=== PATIENT | female | born 1990 | race Caucasian/White ===

== ENCOUNTER → 2021-01-08 08:03 | Outpatient (CLI) | payer OTHER, MEDICAID, SELFPAY ==
[2021-01-08 11:42] LABS: COVID19 -Nasal RAPID POSITIVE (Negative)
== END ==
PROVIDERS: Referring Provider Physician Assistant; Visit Provider Physician Assistant
DX: U07.1 COVID-19 (principal)
CPT/HCPCS: 87635

== ENCOUNTER 2021-01-31 23:13 | Emergency (ER) | payer OTHER, MEDICAID, SELFPAY ==
--- NOTE | 2021-01-31 23:21 | ED.GENADULT ---
HPI - General Adult <Pat Lamas MD - Last Filed: 02/14/21 07:24> General Chief complaint: Psychiatric Symptoms Stated complaint: Anxiety hard time breathing Time Seen by Provider: 01/31/21 23:21 History of Present Illness HPI narrative: 30-year-old woman with no specific known prior history of psychiatric disease including bipolar disorder, schizophrenia or acute psychosis is brought in by her fiance and friends with concerns about increasingly erratic behavior. They note that she had COVID 1 month ago and has had quite a bit of increased psychosocial stressors recently. Her fiance notes that he was sick with COVID at the same time and recovered in about 2 days while the patient essentially was in bed for about 2 weeks with extreme fatigue and is just now getting to the point where she is up and moving again. She still has a slight cough and yesterday was seen at urgent care and prescribed an inhaler and Tessalon Perles. Her fiance notes that over the last number her days of days she has become more and more erratic with less and less organized thinking. On presentation she is clearly responding to internal stimuli, hearing voices as well as seeing people just behind curtains her speech is pressured she continues to note that a ?senior oracle database developer is needed understand ?she is extraordinarily tangential and obviously frightened. According to her boyfriend she has not had fevers in the last 2 weeks, no vomiting, diarrhea or complaints of abdominal pain. Boyfriend, his mother and patient's brother are all significantly distressed by her behavior and reports that this is a clear and obvious change within the last days to weeks. Related Data Previous Rx's Medication Instructions Recorded albuterol sulfate 90 mcg/actuation 2 puff INHALATION Q6H PRN #8.5 g 01/29/21 aerosol inhaler benzonatate 100 mg capsule 100 mg PO BID-TID PRN #14 cap 01/29/21 olanzapine 10 mg tablet (Zyprexa) 10 mg PO BEDTIME #14 tab 02/01/21 Allergies Allergy/AdvReac Type Severity Reaction Status Date / Time No Known Drug Allergies Allergy Unverified 01/29/21 13:05 Review of Systems <Pat Lamas MD - Last Filed: 02/14/21 07:24> Review of Systems ROS Unobtainable: Unobtainable due to mental condition Patient History <Pat Lamas MD - Last Filed: 02/14/21 07:24> Social History Smoking Status: Never smoker Smoking Status: Never smoker Exam <Pat Lamas MD - Last Filed: 02/14/21 07:24> Narrative Exam Narrative: General: Healthy appearing, in significant psychiatric distress, frightened, responding to visual and auditory hallucinations HEENT: Moist mucous membranes, normal sclera with reactive pupils, Respiratory: Lungs are clear to auscultation, no wheezing no rales no rhonchi. Mild dry cough, Full and symmetrical air movement Cardiac: Tachycardic but otherwise Regular rate and rhythm no murmurs no bruits Abdomen: Soft, nontender, good bowel tones, no flank pain Skin: Warm and dry, no rashes Neurologic: Grossly neurologically intact with no obvious asymmetries or abnormalities Extremities: No trauma, well perfused Psych: Tearful, responding to internal stimuli, tangential, pressured with nonsensical thinking Initial Vital Signs Initial Vital Signs: Vital Signs Temperature 98.4 F 02/01/21 00:28 Pulse Rate 108 H 02/01/21 00:28 Respiratory Rate 18 02/01/21 00:28 Blood Pressure 158/72 H 02/01/21 00:28 Pulse Oximetry 97 02/01/21 00:28 <Ammy Gibson DO - Last Filed: 02/01/21 19:30> Initial Vital Signs Initial Vital Signs: Vital Signs Temperature 98.4 F 02/01/21 00:28 Pulse Rate 108 H 02/01/21 00:28 Respiratory Rate 18 02/01/21 00:28 Blood Pressure 158/72 H 02/01/21 00:28 Pulse Oximetry 97 02/01/21 00:28 Course <Pat Lamas MD - Last Filed: 02/14/21 07:24> Course Course Narrative: 515 am Discussion with her Father (currently in [place]). confirms no prior diagnosis of psychiatric issues. Does note there have been significant psychosocial stressors recently. Father's name and contact information is Laureano Dennis [phone]. He is hoping be contacted after further evaluation and social work discussion. Orders Ordered: ED Orders 02/01/21 10:34 Consult to AGRICULTURE PROFESSOR - Pyrotechnist Stat 02/01/21 13:13 Urinalysis and Microscopic Stat Urine Drug Screen, Rapid Stat Vital Signs Vital signs: Vital Signs - 8 hr 02/01/21 13:13 Pulse Rate 86 Respiratory Rate 18 Blood Pressure 127/77 Pulse Oximetry 97 <Ammy Baez Paige, DO - Last Filed: 02/01/21 19:30> Course Additional Information: Spoke with patients Father (in [place]). Also confirms no prior psychiatric issues. But there have been multiple psychosocial stressors. Patient's father is going to talk with her over the phone I asked him to call me back if he had any concerns after he spoke with her at this time she seems much improved in her mentation although probably not completely back at baseline. Patient's father feels comfortable with this and is aware that plan is likely to discharge home after evaluation was social Work and goal to set patient up with medication as well as prompt follow-up with psych. Orders Ordered: ED Orders 02/01/21 10:34 Consult to AGRICULTURE PROFESSOR - Pyrotechnist Stat 02/01/21 13:13 Urinalysis and Microscopic Stat Urine Drug Screen, Rapid Stat Reevaluation(s) Reevaluation #1: Patient signed out to myself by Dr. Lamas. Patient appears to be having a manic episode. She does not have any known prior psychiatric history. She did test positive for COVID several weeks ago she had had resolution of her symptoms is outside the quarantine window. Head CT, labs and chest x-ray do not show any acute changes that would cause her symptoms today. Patient did receive medications here in the department and was sleeping when I [address] and has since awoken. At this time she is calm, her thoughts and speech are organized. Patient does states she has had significant social stressors including a in her family. She is currently asymptomatic. She was quite anxious about the fact that her COVID test was still positive. Patient is agreeable to chat with the perinatal social worker. She does not wish to be placed. She is open to medication and her boyfriend and I both encouraged her to stay to check with perinatal social worker to help her get more appropriate follow-up. Time: 09:17 Reevaluation #2: Patient spoke with our perinatal social worker today, Pamela. Patient has continued to be appropriate here in the department. She and her boyfriend at bedside both feel comfortable returning home. Patient has been agreeable to evaluate with perinatal social worker. She is going to be re-contacted with exact call back time for phone eval this evening. Discussed patient current situation will not completely resolved without some intervention and both medication as well as counseling and possible ongoing psychiatric care are likely necessary. Patient is comfortable with this plan she was given referral for [facility] for additional resources, local psychiatry as well as primary care to establish. Patient also has been given resources by social Work for some additional counseling services. Patient was encouraged to return any time for recheck or if she feels her symptoms are not being well managed or controlled. Vital Signs Vital signs: Vital Signs - 8 hr 02/01/21 13:13 Pulse Rate 86 Respiratory Rate 18 Blood Pressure 127/77 Pulse Oximetry 97 Medical Decision Making <Pat Lamas MD - Last Filed: 02/14/21 07:24> Lab Data Result diagrams: 02/01/21 00:15 02/01/21 00:15 Labs: Lab Results 02/01/21 02/01/21 02/01/21 Range/Units 00:15 00:15 00:15 WBC 8.9 (4.5-11.0) X10^3/uL RBC 4.20 (4.0-5.2) X10^6/uL Hgb 11.6 L (12.0-16.0) g/dL Hct 35.5 L (36-46) % MCV 84.4 (80-100) fL MCH 27.7 (26-34) PG MCHC 32.8 (30-36) % RDW 15.6 H (11.6-14.8) % Plt Count 231 (150-400) X10^3/uL Neut % (Auto) 67.4 (50-75) % Lymph % (Auto) 20.6 L (25-40) % [place] % (Auto) 11.4 (3-14) % Eos % (Auto) 0.0 L (2-4) % Baso % (Auto) 0.6 (0-2) % Neut # (Auto) 6000 (1436-1066) /uL Lymph # (Auto) 1800 (5511-7731) /uL [place] # (Auto) 1000 H (0-900) /uL Eos # (Auto) 0 (0-450) /uL Baso # (Auto) 0 (0-100) /uL Sodium 139 (137-145) mmol/L Potassium 3.5 (3.4-5.1) mmol/L Chloride 110 H (98-107) mmol/L Carbon Dioxide 20 L (22-32) mmol/L BUN 9 (7-17) mg/dL Creatinine 0.58 (0.52-1.04) mg/dL Estimated GFR > 60.0 (>60) mL/min BUN/Creatinine Ratio 15.5 (6-22) Glucose 112 H (70-100) mg/dL Calcium 9.3 (8.4-10.2) mg/dL Total Bilirubin 0.9 (0.2-1.3) mg/dL AST 48 H (14-36) IU/L ALT 56 H (<35) IU/L Alkaline Phosphatase 76 (38-126) U/L Total Protein 7.7 (6.3-8.2) g/dL Albumin 4.3 (3.5-5.0) g/dL Globulin 3.4 (1.7-4.1) g/dL Albumin/Globulin Ratio 1.3 (1.0-2.8) TSH 1.89 (0.47-4.68) uIU/mL Serum , Qual (Negative) Urine Color Urine Appearance Urine pH (4.5-8.0) Ur Specific [place] (1.000-1.035) Urine Protein (Negative) Urine Glucose (UA) (Negative) g/dL Urine Ketones (NEGATIVE) Urine Occult Blood (Negative) Urine Nitrate (Negative) Urine Bilirubin (NEGATIVE) Urine Urobilinogen (0.2) E.U./dL Ur Leukocyte Esterase (NEGATIVE) Urine RBC (0-5/HPF) Urine WBC (0-5/HPF) Ur Squamous Epith Cells (0-5/HPF) Urine Bacteria (None) Ur Culture Indicated? U Opiates 300ng/mL cut (Negative) Ur Oxycodone Screen (Negative) Urine Methadone Screen (Negative) Ur Barbiturates Screen (Negative) U Tricyclic Antidepress (Negative) Ur Phencyclidine Scrn (Negative) Ur Amphetamines Screen (Negative) U Methamphetamines Scrn (Negative) Ur MDMA Scrn (Ecstasy) (Negative) U Benzodiazepines Scrn (Negative) Urine Cocaine Screen (Negative) U Marijuana (THC) Screen (Negative) Ethyl Alcohol < 10 ( - 10) mg/dL SARS-CoV-2 (PCR) (Negative) 02/01/21 02/01/21 02/01/21 Range/Units 00:15 02:20 13:13 WBC (4.5-11.0) X10^3/uL RBC (4.0-5.2) X10^6/uL Hgb (12.0-16.0) g/dL Hct (36-46) % MCV (80-100) fL MCH (26-34) PG MCHC (30-36) % RDW (11.6-14.8) % Plt Count (150-400) X10^3/uL Neut % (Auto) (50-75) % Lymph % (Auto) (25-40) % [place] % (Auto) (3-14) % Eos % (Auto) (2-4) % Baso % (Auto) (0-2) % Neut # (Auto) (9885-2467) /uL Lymph # (Auto) (3918-0120) /uL [place] # (Auto) (0-900) /uL Eos # (Auto) (0-450) /uL Baso # (Auto) (0-100) /uL Sodium (137-145) mmol/L Potassium (3.4-5.1) mmol/L Chloride (98-107) mmol/L Carbon Dioxide (22-32) mmol/L BUN (7-17) mg/dL Creatinine (0.52-1.04) mg/dL Estimated GFR (>60) mL/min BUN/Creatinine Ratio (6-22) Glucose (70-100) mg/dL Calcium (8.4-10.2) mg/dL Total Bilirubin (0.2-1.3) mg/dL AST (14-36) IU/L ALT (<35) IU/L Alkaline Phosphatase (38-126) U/L Total Protein (6.3-8.2) g/dL Albumin (3.5-5.0) g/dL Globulin (1.7-4.1) g/dL Albumin/Globulin Ratio (1.0-2.8) TSH (0.47-4.68) uIU/mL Serum , Qual Negative (Negative) Urine Color Yellow Urine Appearance Clear Urine pH 6.5 (4.5-8.0) Ur Specific [place] 1.015 (1.000-1.035) Urine Protein Negative (Negative) Urine Glucose (UA) Negative (Negative) g/dL Urine Ketones 2+ H (NEGATIVE) Urine Occult Blood Negative (Negative) Urine Nitrate Negative (Negative) Urine Bilirubin Negative (NEGATIVE) Urine Urobilinogen 0.2 (0.2) E.U./dL Ur Leukocyte Esterase Negative (NEGATIVE) Urine RBC None seen (0-5/HPF) Urine WBC None seen (0-5/HPF) Ur Squamous Epith Cells 0-1 /hpf (0-5/HPF) Urine Bacteria Occasional (0-1) (None) Ur Culture Indicated? Cult not indicated U Opiates 300ng/mL cut (Negative) Ur Oxycodone Screen (Negative) Urine Methadone Screen (Negative) Ur Barbiturates Screen (Negative) U Tricyclic Antidepress (Negative) Ur Phencyclidine Scrn (Negative) Ur Amphetamines Screen (Negative) U Methamphetamines Scrn (Negative) Ur MDMA Scrn (Ecstasy) (Negative) U Benzodiazepines Scrn (Negative) Urine Cocaine Screen (Negative) U Marijuana (THC) Screen (Negative) Ethyl Alcohol ( - 10) mg/dL SARS-CoV-2 (PCR) Positive H (Negative) 02/01/21 Range/Units 13:13 WBC (4.5-11.0) X10^3/uL RBC (4.0-5.2) X10^6/uL Hgb (12.0-16.0) g/dL Hct (36-46) % MCV (80-100) fL MCH (26-34) PG MCHC (30-36) % RDW (11.6-14.8) % Plt Count (150-400) X10^3/uL Neut % (Auto) (50-75) % Lymph % (Auto) (25-40) % [place] % (Auto) (3-14) % Eos % (Auto) (2-4) % Baso % (Auto) (0-2) % Neut # (Auto) (8017-4257) /uL Lymph # (Auto) (5073-7425) /uL [place] # (Auto) (0-900) /uL Eos # (Auto) (0-450) /uL Baso # (Auto) (0-100) /uL Sodium (137-145) mmol/L Potassium (3.4-5.1) mmol/L Chloride (98-107) mmol/L Carbon Dioxide (22-32) mmol/L BUN (7-17) mg/dL Creatinine (0.52-1.04) mg/dL Estimated GFR (>60) mL/min BUN/Creatinine Ratio (6-22) Glucose (70-100) mg/dL Calcium (8.4-10.2) mg/dL Total Bilirubin (0.2-1.3) mg/dL AST (14-36) IU/L ALT (<35) IU/L Alkaline Phosphatase (38-126) U/L Total Protein (6.3-8.2) g/dL Albumin (3.5-5.0) g/dL Globulin (1.7-4.1) g/dL Albumin/Globulin Ratio (1.0-2.8) TSH (0.47-4.68) uIU/mL Serum , Qual (Negative) Urine Color Urine Appearance Urine pH (4.5-8.0) Ur Specific [place] (1.000-1.035) Urine Protein (Negative) Urine Glucose (UA) (Negative) g/dL Urine Ketones (NEGATIVE) Urine Occult Blood (Negative) Urine Nitrate (Negative) Urine Bilirubin (NEGATIVE) Urine Urobilinogen (0.2) E.U./dL Ur Leukocyte Esterase (NEGATIVE) Urine RBC (0-5/HPF) Urine WBC (0-5/HPF) Ur Squamous Epith Cells (0-5/HPF) Urine Bacteria (None) Ur Culture Indicated? U Opiates 300ng/mL cut Negative (Negative) Ur Oxycodone Screen Negative (Negative) Urine Methadone Screen Negative (Negative) Ur Barbiturates Screen Negative (Negative) U Tricyclic Antidepress Negative (Negative) Ur Phencyclidine Scrn Negative (Negative) Ur Amphetamines Screen Negative (Negative) U Methamphetamines Scrn Negative (Negative) Ur MDMA Scrn (Ecstasy) Negative (Negative) U Benzodiazepines Scrn Positive H (Negative) Urine Cocaine Screen Negative (Negative) U Marijuana (THC) Screen Positive H (Negative) Ethyl Alcohol ( - 10) mg/dL SARS-CoV-2 (PCR) (Negative) Imaging Data CT scan - head: Radiologist's Impression: No acute intracranial abnormality Weston Day MD Chest x-ray: Radiologist's Impression: No acute cardiopulmonary abnormality Weston Day MD [facility] Narrative Medical decision making narrative: 30-year-old woman who presents with acutely psychotic behavior appearing to be in a manic episode with no prior history of such. It is of note that she was diagnosed with COVID 1 month ago and had a reported 2 week episode of severe fatigue and inability to even get out of bed. Aside from a very mild dry cough she has no continued pulmonary or cardiac symptoms of COVID and she is afebrile. Labs are reassuring suggesting no acute metabolic abnormality or infection. Because this is 1st presentation of such behavior CT scan of the head is obtained 430am covid test remains postive. She is out of the quarantine window based on initial symptoms and resolution <Ammy Gibson, DO - Last Filed: 02/01/21 19:30> Lab Data Labs: Lab Results 02/01/21 02/01/21 02/01/21 Range/Units 00:15 00:15 00:15 WBC 8.9 (4.5-11.0) X10^3/uL RBC 4.20 (4.0-5.2) X10^6/uL Hgb 11.6 L (12.0-16.0) g/dL Hct 35.5 L (36-46) % MCV 84.4 (80-100) fL MCH 27.7 (26-34) PG MCHC 32.8 (30-36) % RDW 15.6 H (11.6-14.8) % Plt Count 231 (150-400) X10^3/uL Neut % (Auto) 67.4 (50-75) % Lymph % (Auto) 20.6 L (25-40) % [place] % (Auto) 11.4 (3-14) % Eos % (Auto) 0.0 L (2-4) % Baso % (Auto) 0.6 (0-2) % Neut # (Auto) 6000 (3745-4940) /uL Lymph # (Auto) 1800 (4245-3283) /uL [place] # (Auto) 1000 H (0-900) /uL Eos # (Auto) 0 (0-450) /uL Baso # (Auto) 0 (0-100) /uL Sodium 139 (137-145) mmol/L Potassium 3.5 (3.4-5.1) mmol/L Chloride 110 H (98-107) mmol/L Carbon Dioxide 20 L (22-32) mmol/L BUN 9 (7-17) mg/dL Creatinine 0.58 (0.52-1.04) mg/dL Estimated GFR > 60.0 (>60) mL/min BUN/Creatinine Ratio 15.5 (6-22) Glucose 112 H (70-100) mg/dL Calcium 9.3 (8.4-10.2) mg/dL Total Bilirubin 0.9 (0.2-1.3) mg/dL AST 48 H (14-36) IU/L ALT 56 H (<35) IU/L Alkaline Phosphatase 76 (38-126) U/L Total Protein 7.7 (6.3-8.2) g/dL Albumin 4.3 (3.5-5.0) g/dL Globulin 3.4 (1.7-4.1) g/dL Albumin/Globulin Ratio 1.3 (1.0-2.8) TSH 1.89 (0.47-4.68) uIU/mL Serum , Qual (Negative) Urine Color Urine Appearance Urine pH (4.5-8.0) Ur Specific [place] (1.000-1.035) Urine Protein (Negative) Urine Glucose (UA) (Negative) g/dL Urine Ketones (NEGATIVE) Urine Occult Blood (Negative) Urine Nitrate (Negative) Urine Bilirubin (NEGATIVE) Urine Urobilinogen (0.2) E.U./dL Ur Leukocyte Esterase (NEGATIVE) Urine RBC (0-5/HPF) Urine WBC (0-5/HPF) Ur Squamous Epith Cells (0-5/HPF) Urine Bacteria (None) Ur Culture Indicated? U Opiates 300ng/mL cut (Negative) Ur Oxycodone Screen (Negative) Urine Methadone Screen (Negative) Ur Barbiturates Screen (Negative) U Tricyclic Antidepress (Negative) Ur Phencyclidine Scrn (Negative) Ur Amphetamines Screen (Negative) U Methamphetamines Scrn (Negative) Ur MDMA Scrn (Ecstasy) (Negative) U Benzodiazepines Scrn (Negative) Urine Cocaine Screen (Negative) U Marijuana (THC) Screen (Negative) Ethyl Alcohol < 10 ( - 10) mg/dL SARS-CoV-2 (PCR) (Negative) 08/01/21 08/01/21 08/01/21 Range/Units 00:15 02:20 13:13 WBC (4.5-11.0) X10^3/uL RBC (4.0-5.2) X10^6/uL Hgb (12.0-16.0) g/dL Hct (36-46) % MCV (80-100) fL MCH (26-34) PG MCHC (30-36) % RDW (11.6-14.8) % Plt Count (150-400) X10^3/uL Neut % (Auto) (50-75) % Lymph % (Auto) (25-40) % [place] % (Auto) (3-14) % Eos % (Auto) (2-4) % Baso % (Auto) (0-2) % Neut # (Auto) (7344-6999) /uL Lymph # (Auto) (0720-1901) /uL [place] # (Auto) (0-900) /uL Eos # (Auto) (0-450) /uL Baso # (Auto) (0-100) /uL Sodium (137-145) mmol/L Potassium (3.4-5.1) mmol/L Chloride (98-107) mmol/L Carbon Dioxide (22-32) mmol/L BUN (7-17) mg/dL Creatinine (0.52-1.04) mg/dL Estimated GFR (>60) mL/min BUN/Creatinine Ratio (6-22) Glucose (70-100) mg/dL Calcium (8.4-10.2) mg/dL Total Bilirubin (0.2-1.3) mg/dL AST (14-36) IU/L ALT (<35) IU/L Alkaline Phosphatase (38-126) U/L Total Protein (6.3-8.2) g/dL Albumin (3.5-5.0) g/dL Globulin (1.7-4.1) g/dL Albumin/Globulin Ratio (1.0-2.8) TSH (0.47-4.68) uIU/mL Serum , Qual Negative (Negative) Urine Color Yellow Urine Appearance Clear Urine pH 6.5 (4.5-8.0) Ur Specific [place] 1.015 (1.000-1.035) Urine Protein Negative (Negative) Urine Glucose (UA) Negative (Negative) g/dL Urine Ketones 2+ H (NEGATIVE) Urine Occult Blood Negative (Negative) Urine Nitrate Negative (Negative) Urine Bilirubin Negative (NEGATIVE) Urine Urobilinogen 0.2 (0.2) E.U./dL Ur Leukocyte Esterase Negative (NEGATIVE) Urine RBC None seen (0-5/HPF) Urine WBC None seen (0-5/HPF) Ur Squamous Epith Cells 0-1 /hpf (0-5/HPF) Urine Bacteria Occasional (0-1) (None) Ur Culture Indicated? Cult not indicated U Opiates 300ng/mL cut (Negative) Ur Oxycodone Screen (Negative) Urine Methadone Screen (Negative) Ur Barbiturates Screen (Negative) U Tricyclic Antidepress (Negative) Ur Phencyclidine Scrn (Negative) Ur Amphetamines Screen (Negative) U Methamphetamines Scrn (Negative) Ur MDMA Scrn (Ecstasy) (Negative) U Benzodiazepines Scrn (Negative) Urine Cocaine Screen (Negative) U Marijuana (THC) Screen (Negative) Ethyl Alcohol ( - 10) mg/dL SARS-CoV-2 (PCR) Positive H (Negative) 02/01/21 Range/Units 13:13 WBC (4.5-11.0) X10^3/uL RBC (4.0-5.2) X10^6/uL Hgb (12.0-16.0) g/dL Hct (36-46) % MCV (80-100) fL MCH (26-34) PG MCHC (30-36) % RDW (11.6-14.8) % Plt Count (150-400) X10^3/uL Neut % (Auto) (50-75) % Lymph % (Auto) (25-40) % [place] % (Auto) (3-14) % Eos % (Auto) (2-4) % Baso % (Auto) (0-2) % Neut # (Auto) (2684-4139) /uL Lymph # (Auto) (3854-2460) /uL [place] # (Auto) (0-900) /uL Eos # (Auto) (0-450) /uL Baso # (Auto) (0-100) /uL Sodium (137-145) mmol/L Potassium (3.4-5.1) mmol/L Chloride (98-107) mmol/L Carbon Dioxide (22-32) mmol/L BUN (7-17) mg/dL Creatinine (0.52-1.04) mg/dL Estimated GFR (>60) mL/min BUN/Creatinine Ratio (6-22) Glucose (70-100) mg/dL Calcium (8.4-10.2) mg/dL Total Bilirubin (0.2-1.3) mg/dL AST (14-36) IU/L ALT (<35) IU/L Alkaline Phosphatase (38-126) U/L Total Protein (6.3-8.2) g/dL Albumin (3.5-5.0) g/dL Globulin (1.7-4.1) g/dL Albumin/Globulin Ratio (1.0-2.8) TSH (0.47-4.68) uIU/mL Serum , Qual (Negative) Urine Color Urine Appearance Urine pH (4.5-8.0) Ur Specific [place] (1.000-1.035) Urine Protein (Negative) Urine Glucose (UA) (Negative) g/dL Urine Ketones (NEGATIVE) Urine Occult Blood (Negative) Urine Nitrate (Negative) Urine Bilirubin (NEGATIVE) Urine Urobilinogen (0.2) E.U./dL Ur Leukocyte Esterase (NEGATIVE) Urine RBC (0-5/HPF) Urine WBC (0-5/HPF) Ur Squamous Epith Cells (0-5/HPF) Urine Bacteria (None) Ur Culture Indicated? U Opiates 300ng/mL cut Negative (Negative) Ur Oxycodone Screen Negative (Negative) Urine Methadone Screen Negative (Negative) Ur Barbiturates Screen Negative (Negative) U Tricyclic Antidepress Negative (Negative) Ur Phencyclidine Scrn Negative (Negative) Ur Amphetamines Screen Negative (Negative) U Methamphetamines Scrn Negative (Negative) Ur MDMA Scrn (Ecstasy) Negative (Negative) U Benzodiazepines Scrn Positive H (Negative) Urine Cocaine Screen Negative (Negative) U Marijuana (THC) Screen Positive H (Negative) Ethyl Alcohol ( - 10) mg/dL SARS-CoV-2 (PCR) (Negative) MDM Narrative Additional Information: Patient signed out to myself by Dr. Lamas, patient's mentation has significantly cleared here in the department. She is resistant to voluntary placement and her exam with her boyfriend at bedside is not appropriate for detainment. Patient was seen by social work who agrees with my assessment. Social Work has set up a follow-up call this evening. Patient was given a prescription for Zyprexa which she is somewhat reluctant to take a but after discussion seems willing. She is also given referral for Psychiatry as well as primary care option to establish. I also spoke with her father and asked him to recontact me after he spoke with her over the phone if he had any other concerns. Patient has been set up with resources as well as a recheck this evening via phone. She was also given referral to psych as well as primary care to establish. Discharge Plan Departure Patient Disposition: Home Clinical Impression: Psychosis Instructions: DI for Psychosis Activity Restrictions/Additional Instructions: You appear to have had a psychotic episode. You received medications overnight which seemed to be helpful along with sleep. This is not a problem that resolves immediately and requires follow-up with Behavioral Health and a psychiatrist. A referral is included below. Call [facility] to establish with a primary care provider. He will be receiving a call from the perinatal social worker who is setting up a follow-up call later this evening, she will contact you with the exact time. This is also a problem typically does require medication for some time. A prescription has been provided for you today and I would encourage you to take it daily as you are likely to have recurrent symptoms if you do not. Prescription sent to [facility] in [place]. Take your first dose this evening. If you're feeling suicidal or having suicidal thoughts, contact the suicide hotline (this is also a contact number for outpatient counseling and additional services that you may call at any time). . You are welcome to return at any time. If you are having thoughts of harming herself or others, hallucinations, difficulty managing her thoughts, if you feel your having similar worsening symptoms as what brought you in last night or other new or concerning symptoms. Prescriptions: New olanzapine [Zyprexa] 10 mg tablet 10 mg PO BEDTIME Qty: 14 RF: 0 No Action albuterol sulfate 90 mcg/actuation HFA aerosol inhaler 2 puff inhalation Q6H PRN (Reason: shortness of breath or wheezing) Qty: 8.5 RF: 0 benzonatate 100 mg capsule 100 mg PO BID-TID PRN (Reason: cough) Qty: 14 RF: 0 Referrals: Gus Aguilar MD [Physician] - Miscellaneous,MD Shivam [Primary Care Provider] - Caitlin Mcfarland DO [Physician] -
[2021-01-31] MEDS: HALOPERIDOL 5 MG/ML VIAL 10 MG (23:59)
[2021-01-31] MEDS: diphenhydrAMINE 50 MG/ML VIAL (23:59)
[2021-01-31] MEDS: LORazepam 2 MG/ML INJ (23:59)
--- NOTE | 2021-02-01 00:04 | DI.RAD.S_ITS ---
PROCEDURE: XR CHEST 1V INDICATIONS: cough, post covid TECHNIQUE: One view of the chest was acquired. COMPARISON: None. FINDINGS: Surgical changes and devices: None. Lungs and pleura: Lungs are clear. No pleural effusions or pneumothorax. Mediastinum: Mediastinal contours appear normal. Heart size is normal. Bones and chest wall: No suspicious bony lesions. Overlying soft tissues appear unremarkable. IMPRESSION: No acute process. Concordant with preliminary interpretation. Dictated by: Melia Milian M.D. on 02/01/2021 at 7:34 Approved by: Melia Milian M.D. on 02/01/2021 at 7:34
--- NOTE | 2021-02-01 00:05 | DI.CT.S_ITS ---
PROCEDURE: CT HEAD/BRAIN WO CON INDICATIONS: acute psychosis TECHNIQUE: Noncontrast 4.5 mm thick angled axial sections acquired from the foramen magnum to the vertex, with coronal and sagittal reformats. For radiation dose reduction, the following was used: automated exposure control, adjustment of mA and/or kV according to patient size. COMPARISON: None. FINDINGS: Image quality: Excellent. CSF spaces: Basal cisterns are patent. No extra-axial fluid collections. Ventricles are normal in size and shape. Brain: No midline shift. No intracranial masses or hemorrhage. Bhatt-white matter interface is normal. Skull and face: Calvarium and visualized facial bones are intact, without suspicious lesions. Sinuses: Visualized sinuses and mastoids are clear. IMPRESSION: No acute intracranial abnormality. Concordant with preliminary interpretation. Dictated by: Melia Milian M.D. on 02/01/2021 at 7:41 Approved by: Melia Milian M.D. on 02/01/2021 at 7:42
[2021-02-01 00:28] VITALS: BP 158/72; PULSE 108; RESP 18; TEMP 36.9; O2SAT 97; BMI 31.9
[2021-02-01 00:29] LABS: Add Manual Diff / Slide Review NO; Basophils Absolute Auto 0 /uL (0-100); Basophils Percent Auto 0.6 % (0-2); Eosinophils Absolute Auto 0 /uL (0-450); Hematocrit 35.5 % (36-46); Hemoglobin 11.6 g/dL (12.0-16.0); Lymphocytes Absolute Auto 1800 /uL (1100-4500); Lymphocytes Percent Auto 20.6 % (25-40); Mean Corpuscular HGB Conc 32.8 % (30-36); Mean Corpuscular Hemoglobin 27.7 PG (26-34); Mean Corpuscular Volume 84.4 fL (80-100); Monocytes Absolute Auto 1000 /uL (0-900); Monocytes Percent Auto 11.4 % (3-14); Neutrophils Absolute Auto 6000 /uL (1500-7000); Neutrophils Percent Auto 67.4 % (50-75); Platelet Count 231 X10^3/uL (150-400); Red Cell Distribution Width 15.6 % (11.6-14.8); White Blood Cell Count 8.9 X10^3/uL (4.5-11.0)
--- NOTE | 2021-02-01 00:36 | PC.NURSE ---
Patient triage information was not obtainable from the patient due to her altered mental status; obtained most answers from William patient's fiance.
[2021-02-01 00:37] LABS: Alanine Aminotransferase 56 IU/L (<35); Albumin 4.3 g/dL (3.5-5.0); Albumin Globulin Ratio 1.3 (1.0-2.8); Alkaline Phosphatase 76 U/L (38-126); Aspartate Aminotransferase 48 IU/L (14-36); BUN Creatinine Ratio 15.5 (6-22); Bilirubin Total 0.9 mg/dL (0.2-1.3); Blood Urea Nitrogen 9 mg/dL (7-17); Calcium 9.3 mg/dL (8.4-10.2); Carbon Dioxide 20 mmol/L (22-32); Chloride 110 mmol/L (98-107); Estimated Glomerular Filt Rate > 60.0 mL/min (>60); Ethanol (ETOH) < 10 mg/dL; Globulin 3.4 g/dL (1.7-4.1); Glucose 112 mg/dL (70-100); HEMOLYSIS 44 (0-50); Potassium 3.5 mmol/L (3.4-5.1); Sodium 139 mmol/L (137-145); Total Protein 7.7 g/dL (6.3-8.2)
[2021-02-01 01:34] LABS: Thyroid Stimulating Hormone 1.89 uIU/mL (0.47-4.68)
[2021-02-01 03:49] LABS: COVID19 - ADMIT (NP swab/PCR) POSITIVE (Negative)
[2021-02-01 07:32] LABS: Pregnancy Test Serum,Qual Negative (Negative)
[2021-02-01 13:13] VITALS: BP 127/77; PULSE 86; RESP 18; O2SAT 97
[2021-02-01 13:21] LABS: Appearance Urine UA CLEAR; Bilirubin Urine UA NEGATIVE (NEGATIVE); Color Urine UA YELLOW; Glucose Urine UA NEGATIVE (Negative); Ketones Urine UA 2+ (NEGATIVE); Leukocyte Esterase Urine UA NEGATIVE (NEGATIVE); Nitrite Urine UA NEGATIVE (Negative); Occult Blood Urine UA NEGATIVE (Negative); Protein Urine UA NEGATIVE (Negative); RBC Urine None Seen (0-5/HPF); Specific Gravity Urine UA 1.015 (1.000-1.035); Urobilinogen Urine UA 0.2 E.U./dL (0.2); WBC Urine None Seen (0-5/HPF)
[2021-02-01 13:28] LABS: pH Urine UA 6.5 (4.5-8.0)
[2021-02-01 13:31] LABS: UR Morphine/Opiate cutoff 300 Negative (Negative); Ur Creatinine Normal (Normal); Ur Specific Gravity Normal (Normal); Urine Amphetamines Negative (Negative); Urine Barbiturates Negative (Negative); Urine Benzodiazepines Positive (Negative); Urine Cocaine Negative (Negative); Urine MDMA Negative (Negative); Urine Methadone Negative (Negative); Urine Methamphetamines Negative (Negative); Urine Oxycodone Negative (Negative); Urine Phencyclidine Negative (Negative); Urine Tetrahydrocannabinol Positive (Negative); Urine Tricyclic Antidepressant Negative (Negative); Urine pH Normal (Normal)
[2021-02-01 13:41] LABS: Bacteria Urine Occasional (0-1); Culture Indicated Urine Cult Not Indicated; Squamous Epithelial Cell Urine 0-1 /HPF (0-5/HPF)
--- NOTE | 2021-02-01 14:35 | CM.SWNOTE ---
PLANNING DIVISION SUPERINTENDENT Consult Note PLANNING DIVISION SUPERINTENDENT - Ditch Inspector Assessment Start: 02/01/21 13:52 Freq: Status: Active Protocol: Document 02/01/21 13:52 CASTILLO (Rec: 02/01/21 14:35 CASTILLO [email or web address]) PLANNING DIVISION SUPERINTENDENT/Ditch Inspector Assessment Start date 02/01/21 Presenting Problem This 30 yo female presents w/ fiance w/increased manic and erratic behaviors, no prior psychiatric history, some chronic anxiety and depression , not on medication and no outpatient provider. Patient is COVID-19+ and has been under unusually high stress d/t a in her family and subsequent legal proceedings. Mother/father live in [place]. Precipitating Event(s) Fatigue d/t COVID-19 virus, Increased family communication d/t the of her aunt, mother does not speak turkish well so patient helping her parents understanding the legal documents re: her aunt's estate. Family discontent between patient and her family and between family and fiance re: how to best care for her (patient) Patient Strengths Well spoken/eloquent, works customer business manager at a [employer], has many good friends and family, appears confident in her ability to self soothe when possible or approriate. Current Behavioral Health Provider(s) None reported Include Facility, Provider, Ph. # Psych. Hx Mental Health and Chemical None reported Dependency Family Hx of Behavioral Abuse None reported Psychiatric Hospitalizations (date(s)/ None reported location) Psychosocial information & Support Lives w/fiance William [phone] [phone], rents a studio above a barn, both work customer business manager. William's family lives in [place], very supportive. Patient's family lives in [place], brother lives in [facility]. Patient's parents are described as traditional and are worried about patient. Legal Matters - Outstanding Issues None reported Orientation (Person/Place/Time) Oriented Stated Mood Tired Affect (Congruent with Mood?) Flat, groggy Thought Content - Specify/Describe Appropriate Obsessions, Delusions, Hallucinations Thought Processes (Xhgbrmw-Dlaijqvc-Ibzh Coherent and goal directed Txvokpln-Tpydldtk-Yibnslpqdb- Jjmrnnywydmilv-Vodcojd-Eaqktuqjzasb- Thought Blocking) Speech (Fiukps-Vvbk-Npsvscg-Rapid-Soft- Normal Loud-Pressured) Motor (Ljwjpk-Mndabkppe-Qsql-Other) Normal Insight (Lvsb-Kfgu-Bipb/Limited) Good Judgement (Vgvd-Dloy-Qqru/Limited) Fair Impulse Control (Adequate-Impaired) Not assessed Memory (Zecuujabj-Rwzpvv-Rbjzyc, Intact Impaired-Intact) Concentration (Intact-Impaired) Intact Attention (Intact-Impaired) Intact Behavior (Appropriate-Inappropriate) Appropriate Additional Comment Appears mostly back to baseline, according to varinder Thomas Suicidal Ideation (Plan) No Homicidal Ideation (Plan) No Comment Denies h/o SI/SA, denies current SI/HI Intervention Had lengthy conversation w/ patient and her fiance William, by phone, d/t COVID-19+ status (outside patient's room window, clear view of patient and SO). Discussed events leading up to this psychosis and discussed goals for DC today. Patient doesn't want inpatient treatment. William says patient is night and day better today and explains he became very concerned w/ patient's increased manic/ erratic behaviors and non- sensical speech over the last 2 days. Patient able to recount her personal history over the last month and shows good insight into a few triggering events that lead to her feeling overwhelmed and out of control, leading inevitably to a psychotic episode. Patient makes good eye contact throughout but does appear groggy. Patient wants to return home w/SO William and William agreeable to plan. this PLANNING DIVISION SUPERINTENDENT validated patient's complaints of feeling overwhelmed in current social/ family conflict and dysfunctional relationhsips, on top of recent COVID virus and working long hours at her current job. Encouraged patient to take recommended medication, Zyprexa, as a a way to bridge until she gets good, consistent, outpatient MH support which she requires at this time. Reiterated numerous times that psychosis and MH dx, if left untreated, can return and increase if not addressed. Patient prefers homeopathic methods as a first line of defense. RA Plan Home w/ S.O; [facility] to call at [phone]. Outpatient f/u recommended- establish w/a PCP at [facility], discussed [facility] referral for short term counseling (?), establish w/a psychiatrist through [facility] or other provider that accepts your insurance. Return RONNIE w/ ongoing or increased manic symptoms ie erratic and paranoid behaviors NITA Bush
== END 2021-02-01 13:15 | disposition home or self-care (01) ==
PROVIDERS: Emergency Medicine; Emergency Provider Emergency Medicine
DX: F29 Unspecified psychosis not due to a substance or known physiological condition (principal); U07.1 COVID-19
CPT/HCPCS: 70450; 71045; 80053; 80305; 80320; 81001; 84443; 84703; 85025; 87635; 99284; C9803; J1200; J1630; J2060

== ENCOUNTER → 2021-05-20 07:19 | Outpatient (CLI) | payer OTHER, MEDICAID, SELFPAY ==
[2021-05-20 08:03] LABS: Add Manual Diff / Slide Review NO; Basophils Absolute Auto 0 /uL (0-100); Basophils Percent Auto 0.2 % (0-2); Eosinophils Absolute Auto 100 /uL (0-450); Eosinophils Percent Auto 1.2 % (2-4); Hematocrit 39.3 % (36-46); Lymphocytes Absolute Auto 2000 /uL (1100-4500); Lymphocytes Percent Auto 32.2 % (25-40); Mean Corpuscular Hemoglobin 27.8 PG (26-34); Mean Corpuscular Volume 84.2 fL (80-100); Monocytes Absolute Auto 600 /uL (0-900); Monocytes Percent Auto 9.4 % (3-14); Neutrophils Absolute Auto 3500 /uL (1500-7000); Platelet Count 200 X10^3/uL (150-400); Red Blood Cell Count 4.66 X10^6/uL (4.0-5.2); Red Cell Distribution Width 13.4 % (11.6-14.8); White Blood Cell Count 6.1 X10^3/uL (4.5-11.0)
[2021-05-20 08:21] LABS: Alanine Aminotransferase 24 IU/L (<35); Albumin 4.6 g/dL (3.5-5.0); Albumin Globulin Ratio 1.5 (1.0-2.8); Alkaline Phosphatase 62 U/L (38-126); Aspartate Aminotransferase 25 IU/L (14-36); BUN Creatinine Ratio 23.7 (6-22); Bilirubin Total 0.6 mg/dL (0.2-1.3); Blood Urea Nitrogen 14 mg/dL (7-17); Calcium 9.2 mg/dL (8.4-10.2); Carbon Dioxide 22 mmol/L (22-32); Chloride 106 mmol/L (98-107); Estimated Glomerular Filt Rate > 60.0 mL/min (>60); Glucose 86 mg/dL (70-100); HEMOLYSIS < 15 (0-50); Potassium 4.1 mmol/L (3.4-5.1); Sodium 137 mmol/L (137-145); Total Protein 7.6 g/dL (6.3-8.2)
[2021-05-20 08:37] LABS: Vitamin D 25 Hydroxy (D3) 29.2 ng/mL (30.0-100.0)
[2021-05-20 09:25] LABS: Folate 10.3 ng/mL (2.76-20.0); Vitamin B12 319 pg/mL (239-931)
== END ==
PROVIDERS: PCP Family Medicine; Referring Provider Family Medicine; Visit Provider Family Medicine
DX: B94.8 Sequelae of other specified infectious and parasitic diseases (principal); D64.9 Anemia, unspecified; R74.8 Abnormal levels of other serum enzymes; R52 Pain, unspecified; R68.89 Other general symptoms and signs
CPT/HCPCS: 36415; 80053; 82306; 82607; 82746; 85025